=== PATIENT | male | born 1995 | race African-American/Black ===

== ENCOUNTER → 2018-12-12 17:28 | Outpatient (CLI) | payer OTHER | END | disposition home or self-care (01) | LOC: D.LABREF 17:28 | DX: R31.9 Hematuria, unspecified (principal) ==

== ENCOUNTER → 2018-12-20 12:46 | Outpatient (CLI) | payer OTHER | END | disposition home or self-care (01) | LOC: D.CT 12:46 | PROVIDERS: ATTEND Urology | DX: R31.0 Gross hematuria (principal) ==

== ENCOUNTER 2019-01-12 05:15 | Day surgery (SDC) | payer OTHER ==
[~2019-01-12] VITALS: Ht 190.5 cm; Wt 108.9 kg
[2019-01-12] MEDS ORDERED: ZANTAC300 MG PO (07:34)
[2019-01-12 07:45] VITALS: BP 131/77; Ht 190.5 cm; Wt 108.9 kg
--- NOTE | 2019-01-12 11:20 | NUR ---
REC'D FROM SURGERY ACCOMPANIED BY [facility] OFFICERS. ORANGE JUICE AND FL TRAY BROUGHT TO PT.
--- NOTE | 2019-01-12 11:23 | NUR ---
DR DIAZ SPOKE WITH PATIENT AND [facility] OFFICERS.
--- NOTE | 2019-01-12 12:10 | NUR ---
IV DC'D WITH CATHETER INTACT. WRITTEN AND VERBAL DC INST. GIVEN TO [facility] ALONG WITH COPY OF POST OP NOTE. VERBALIZED UNDERSTANDING.
--- NOTE | 2019-01-12 12:10 | NUR ---
TOLERATED FL TRAY. AMBULATED TO BATHROOM AND VOIDED WITHOUT DIFFICULTY.
--- NOTE | 2019-01-12 12:20 | NUR ---
DC'D HOME WITH [facility] VIA FACILITY VEHICLE. TAKEN TO VEHICLE VIA WC. STABLE AT TIME OF DC.
--- NOTE | 2019-01-12 12:55 | OP ---
PATIENT NAME: TYREL JOY MEDICAL RECORD: [id number] :96 LOCATION:[facility] ADMISSION DATE: SURGEON: ANASTASIA DIAZ MD DATE OF OPERATION: 01/12/2019 SURGEON: Anastasia Diaz MD ANESTHESIA: TIVA by Ralf Bosch CRNA DIAGNOSES: Duran hematuria, right polycystic kidney. PROCEDURE: Cystoscopy, (abdominal ultrasound done by radiology). FINDINGS: On ultrasound of the kidneys and bladder, we could only find a right kidney which appears to show adult polycystic kidney disease. The left kidney could not be found. It may be atrophic or absent. Normal bladder. Possible liver granulomas. On cystoscopy, there is a nonobstructive prostate. Single ureteral orifices are seen bilaterally. No bladder tumors were found. The most likely cause of gross hematuria is the right polycystic kidney. SPECIMENS: None. ESTIMATED BLOOD LOSS: None. CLINICAL HISTORY: This is a 23-year-old male, who is a smoker. He reports episodes of painless gross hematuria. He is an inmate in [place]. He comes today to have the hematuria investigated. I will obtain an ultrasound to check the upper tracts and perform cystoscopy to check the lower tracts. He is not allergic to any medications. He was given Ancef button inspector to the OR. DESCRIPTION OF PROCEDURE: The patient was given IV sedation. The portable ultrasound unit was then used to perform ultrasonography of the kidneys, bladder and liver. The right kidney shows signs of adult-onset polycystic kidney disease with multiple intrarenal cyst being seen. There are no tumors that I can see. The full radiographic report will be available later on. This is my own interpretation of the ultrasound images. On the left side, we could not find the kidney at all even when examining the pelvis for a possible pelvic kidney. Bladder appears to be normal in contour with no filling defects and no mass lesions seen. Due to the possibility of a solitary right polycystic kidney, we also checked the liver to check for liver cysts and no liver cysts were seen on cursory examination. At this point, he was placed in lithotomy position and prepped and draped. A 17-[place] cystoscope with 30-degree lens was used for visualization. The lower urinary tract was entirely normal. There are no strictures or tumors. The bladder was then emptied through the cystoscope sheath. I will send a copy of my operative note back to the [facility] doctor for further evaluation with either CT or other imaging to check for the left kidney. He will probably need a nephrology consultation in the future. TRANSINT:[id number] Voice Confirmation ID: [id number] DOCUMENT ID: [id number] OPERATIVE REPORT [id number] TYREL JOY ROBERT S MD at 1255 CC: [id number] DICTATION DATE: 01/12/19 1121 ORDER PROCESSOR: 01/12/19 1232 [facility] 01/12/19 [place] [id number]
== END 2019-01-12 12:20 | disposition home or self-care (01) ==
LOC: D.OPS 05:15 → D.US 07:00 → D.OPS 07:30
PROVIDERS: ATTEND Urology
DX: R31.0 Gross hematuria (principal); Q61.2 Polycystic kidney, adult type; F17.200 Nicotine dependence, unspecified, uncomplicated; Z01.812 Encounter for preprocedural laboratory examination